=== PATIENT | male | born 1945 | race Caucasian/White ===

== ENCOUNTER 2017-09-12 20:53 | Emergency (ER) | payer MEDICARE, OTHER ==
[~2017-09-12] VITALS: Ht 165.1 cm; Wt 77.1 kg
--- NOTE | 2017-09-12 21:09 | NUR ---
BBRA 102 FROM HOME C/C OF "FEELING DIZZY WHILE HAVING DINNER".-[id number]. PER EMS, PT DIAPHORETIC WHEN STANDING. BP 93/68. PER FAMILY PT IS LETHARGIC. PT PLACED ON MONITOR AND VITALS WNL. PT RESTING IN BED IN NO ACUTE DISTRESS. AWAITING MD LLOYD.
[2017-09-12] MEDS ORDERED: IV NS 0.9% 500 ML BAG IV ONE (21:30)
[2017-09-12 21:43] LABS: BASOPHILS # (AUTO) 0.1 /CMM (0.0-0.2); BASOPHILS % (AUTO) 0.9 % (0.0-2.0); EOSINOPHILS % (AUTO) 2.8 % (0.0-6.0); HEMATOCRIT 42 % (39-51); HEMOGLOBIN 14.7 g/dL (13.5-17.5); LYMPHOCYTES # (AUTO) 2.8 /CMM (0.8-4.8); LYMPHOCYTES % (AUTO) 32.1 % (20.0-44.0); MEAN CORPUSCULAR HGB CONC 35 g/dl (31.0-36.0); MEAN CORPUSCULAR VOLUME 87 fL (80-96); MONOCYTES # (AUTO) 0.8 /CMM (0.1-1.30); MONOCYTES % (AUTO) 8.8 % (2.0-12.0); NEUTROPHILS # (AUTO) 4.9 /CMM (1.8-8.9); NEUTROPHILS % (AUTO) 55.4 % (43.0-81.0); PLATELET COUNT (AUTO) 217 /CMM (150-450); RED BLOOD CELL COUNT(AUTO) 4.83 MIL/uL (4.5-6.0); WHITE BLOOD COUNT (AUTO) 8.8 K/uL (4.3-11.0)
[2017-09-12 22:00] LABS: CALCIUM, SERUM 8.9 mg/dL (8.5-10.1); CARBON DIOXIDE 26 mmol/L (21-32); CHLORIDE 104 mmol/L (98-107); CREATININE 1.5 mg/dL (0.6-1.3); GLUCOSE 169 mg/dL (74-106); SODIUM SERUM 138 mmol/L (136-145); UREA NITROGEN, BLOOD 29 mg/dL (7-18)
[2017-09-12 22:09] LABS: TROPONIN I 0.078 ng/mL (0.00-0.056)
[2017-09-12 22:13] LABS: INR 0.93 (0.87-1.13)
--- NOTE | 2017-09-12 22:17 | NUR ---
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
[2017-09-12] MEDS ORDERED: ASPIRIN 81 MG TAB.CHEW PO ONE (22:30)
--- NOTE | 2017-09-12 22:32 | NUR ---
CODE STEMI PAGED
[2017-09-12] MEDS ORDERED: ASPIRIN 81 MG TAB.CHEW ONE (22:37)
--- NOTE | 2017-09-12 22:38 | NUR ---
CALLED [facility], SPOKE WITH KRISTIAN. FAXED OVER EKG AND FACESHEET.
--- NOTE | 2017-09-12 23:10 | NUR ---
[facility] CALLED BACK SPOKE WITH KRISTIAN, TRANSPORT FOR THE PATIENT WILL BE HERE IN 20 MINS.
[2017-09-13 00:01] VITALS: BP 110/80
--- NOTE | 2017-09-13 00:08 | NUR ---
EMS ARRIVED AND TRANSFERED PT TO [facility] AND PT TOLERATED WELL. PT LEFT HOSPTIAL WITH EMS IN STABLE CONDITION TO [facility].
== END 2017-09-13 00:08 | disposition short-term general hospital (02) ==
LOC: ER 20:56
DX: I21.3 ST elevation (STEMI) myocardial infarction of unspecified site (principal); R55 Syncope and collapse; N28.9 Disorder of kidney and ureter, unspecified; E11.9 Type 2 diabetes mellitus without complications; I10 Essential (primary) hypertension; G89.29 Other chronic pain; Z79.82 Long term (current) use of aspirin
CPT/HCPCS: 36415; 70450; 71045; 80048; 82962; 84484; 85025; 85730; 87081; 93005; 99291; A4606; Z7610